=== PATIENT | female | born 1960 | race African-American/Black ===

== ENCOUNTER 2019-10-11 08:11 | Day surgery (SDC) | payer OTHER ==
[2019-10-09 18:13] VITALS: BMI 33.9
[2019-10-11] MEDS ORDERED: PROPOFOL 20 ML ONE (08:19)
[2019-10-11] MEDS ORDERED: LIDOCAINE HCL/PF 2% SDV 5ML VIAL ONE (08:19)
[2019-10-11 10:14] VITALS: BP 109/68; PULSE 71; TEMP 98
--- NOTE | 2019-10-16 13:08 | PATH ---
Surgical Pathology Report Patient Name: FARRUKH KENNEDY [facility]. Rec. #: [id number] /Age/Gender: 1960 (Age: 58) / F Account: [id number] Location: [facility] Taken: 10/11/2019 Received: 10/11/2019 Reported: 10/16/2019 Physicians: Arya Trejo M.D. Specimen(s) Received A: POLYP DISTAL LEFT COLON B: POLYP SIGMOID COLON Clinical History Screening, history of polyps Postoperative diagnosis: Colon polyps Final Diagnosis A. DISTAL LEFT COLON, POLYP, BIOPSY: TUBULAR ADENOMA. B. SIGMOID COLON, POLYP, BIOPSY: TUBULAR ADENOMA. Electronically Signed Caro Herzog M.D. Gross Description A. Received in formalin, labeled "biopsy polyp distal left colon" is a banks, irregular portion of soft tissue measuring 0.4 cm. in greatest dimension. The specimen is submitted in toto in one cassette. B. Received in formalin, labeled "biopsy polyp sigmoid colon" is a banks, irregular portion of soft tissue measuring 0.2 cm. in greatest dimension. The specimen is submitted in toto in one cassette. /10/11/2019 saudi/10/11/2019
== END 2019-10-11 10:16 | disposition home or self-care (01) ==
LOC: FASU-ENDO 08:11
PROVIDERS: ATTEND Internal Medicine Gastroenterology
PROC: 0DBN8ZX Excision of Sigmoid Colon, Via Natural or Artificial Opening Endoscopic, Diagnostic (ICD-10-PCS; 2019-10-11)
PROC: 0DBM8ZX Excision of Descending Colon, Via Natural or Artificial Opening Endoscopic, Diagnostic (ICD-10-PCS; principal; 2019-10-11 09:04)
DX: Z86.010 Personal history of colon polyps (principal); D12.4 Benign neoplasm of descending colon; D12.5 Benign neoplasm of sigmoid colon
CPT/HCPCS: 88305-TC